=== PATIENT | male | born 1960 | race African-American/Black ===

== ENCOUNTER 2017-05-08 05:42 | Emergency (ER) | payer BC ==
[2017-05-08] MEDS ORDERED: Famotidine 20 MG Tab PO ONE (06:04)
[2017-05-08] MEDS ORDERED: Ondansetron 4 MG Tab.DIS PO ONE (06:04)
--- NOTE | 2017-05-08 06:22 | EDM.PDOC ---
ED HPI GENERAL MEDICAL PROBLEM - General Chief Complaint: Abdominal Pain Stated Complaint: ABDOMINAL PAIN Time Seen by Provider: 05/08/17 05:56 Source of Information: Reports: Patient, RN Notes Reviewed - History of Present Illness INITIAL COMMENTS - FREE TEXT/NARRATIVE: 57-year-old male comes in with upper mid abdominal pain. This awakened him from sleep about 3 hours ago. Continues upper mid abdomen, does not radiate to his back. Have some mild nausea but that is gone. He said no vomiting or diarrhea. No fever chills. No chest pain or difficulty breathing. Epigastric Pain Score (Numeric/FACES): 7 - Related Data Allergies Allergy/AdvReac Type Severity Reaction Status Date / Time No Known Allergies Allergy Verified 05/08/17 05:49 Home Meds: Home Meds Bismuth Subsalicylate [Pepto Bismol] 262 mg PO ONCALL PRN 05/08/17 [History] Past Medical History Cardiovascular History: Reports: Other (See Below) Other Cardiovascular History: Pericarditis Social & Family History - Tobacco Use Smoking Status *Q: Never Smoker - Recreational Drug Use Recreational Drug Use: No ED ROS GENERAL - Review of Systems Review Of Systems: See Below Constitutional: Denies: Fever, Chills, Diaphoresis HEENT: Reports: No Symptoms Respiratory: Denies: Shortness of Breath, Pleuritic Chest Pain, Cough Cardiovascular: Denies: Chest Pain GI/Abdominal: Reports: Abdominal Pain, Nausea. Denies: Diarrhea (Gone), Vomiting Musculoskeletal: Denies: Back Pain Skin: Reports: No Symptoms Neurological: Reports: No Symptoms ED EXAM, GI/ABD - Physical Exam Exam: See Below General Appearance: Alert, No Apparent Distress Throat/Mouth: Normal Inspection, Normal Oropharynx Head: No: Facial Swelling Neck: Supple, Full Range of Motion Respiratory/Chest: No Respiratory Distress, Lungs Clear, Normal Breath Sounds Cardiovascular: Regular Rate, Rhythm GI/Abdominal Exam: Soft, Tender (Very minimal tenderness upper mid abdomen, remainder of abdomen completely soft and nontender) Back Exam: No: CVA Tenderness (L), CVA Tenderness (R) Extremities: Normal Inspection, Normal Range of Motion Neurological: Alert, Oriented, No Motor/Sensory Deficits Skin Exam: Warm, Dry Course - Vital Signs Last Recorded V/S: Last Vital Signs Temp 97.8 F 05/08/17 05:50 Pulse 85 05/08/17 05:50 Resp 16 05/08/17 05:50 BP 136/95 H 05/08/17 05:50 Pulse Ox 100 05/08/17 05:50 - Orders/Labs/Meds Meds: Medications Discontinued Medications Generic Name Dose Route Start Last Admin Trade Name Wang PRN Reason Stop Dose Admin Famotidine 20 mg 05/08/17 06:04 05/08/17 06:10 Pepcid PO 05/08/17 06:05 20 mg ONETIME ONE Administration Ondansetron HCl 4 mg 05/08/17 06:04 05/08/17 06:10 Zofran Odt PO 05/08/17 06:05 4 mg ONETIME ONE Administration - Re-Assessments/Exams Free Text/Narrative Re-Assessment/Exam: 05/08/17 06:31 Patient is feeling better, labs, imaging studies not clinically indicated at this time. He has been treated with Zofran 4 mg ODT and Pepcid 20 mg by mouth. Departure - Departure Time of Disposition: 06:20 Disposition: Home, Self-Care 01 Condition: Fair Clinical Impression: Gastritis Qualifiers: Gastritis type: unspecified gastritis Chronicity: acute Gastritis bleeding: without bleeding Qualified Code(s): K29.00 - Acute gastritis without bleeding - Discharge Information Instructions: Gastritis, Adult, [id number] Referrals: PCP,None [Primary Care Provider] - Forms: ED Department Discharge, ED Return to Work/School Form Additional Instructions: Rest, clear liquids until this afternoon, then very careful bland diet as tolerated, consider continuing Pepcid 20 mg daily if needed for further discomfort, Tums, Maalox or Mylanta if needed for further discomfort, return to ED if symptoms worsening in any way.
== END 2017-05-08 06:33 | disposition home or self-care (01) ==
LOC: JD.ED 05:42
DX: K29.00 Acute gastritis without bleeding (principal)
CPT/HCPCS: 99283; A9270